=== PATIENT | male | born 1955 | race Caucasian/White ===

== ENCOUNTER 2018-09-10 00:12 | Emergency (ER) | payer OTHER ==
[2018-09-10] MEDS: IBUPROFEN 800 MG TAB PO (00:55)
== END 2018-09-10 01:05 | disposition home or self-care (01) ==
LOC: E/R 00:12
DX: Z76.5 Malingerer [conscious simulation] (principal); R40.2142 Coma scale, eyes open, spontaneous, at arrival to emergency department; R40.2362 Coma scale, best motor response, obeys commands, at arrival to emergency department; R40.2252 Coma scale, best verbal response, oriented, at arrival to emergency department; Z59.0 Homelessness
CPT/HCPCS: 99282